=== PATIENT | male | born 1985 | race Two or more races ===

== ENCOUNTER 2017-02-26 09:27 | Emergency (ER) | payer OTHER ==
[~2017-02-26] VITALS: Ht 175.3 cm; Wt 81.3 kg
[2017-02-26] MEDS ORDERED: IBUP200C10 PO (09:42)
[2017-02-26] MEDS ORDERED: NS 1,000 ML IV ONE ×3 (10:15→11:15)
[2017-02-26] MEDS ORDERED: ONDANSETRON 4MG/2ML VIAL (J2405) IV ONE (10:15)
[2017-02-26 10:37] LABS: BASO # 0.1 K/mm3 (0.0-0.2); BASO % 1.1 % (0.0-1.0); EOS # 0.1 K/mm3 (0.0-0.50); LARGE UNSTAINED CELL # 0.2 K/mm3 (0.0-0.4); LYMPH # 1.1 K/mm3 (1.5-6.5); LYMPH % 19.9 % (24.0-44.0); MEAN CORPUSCULAR HEMOGLOBIN 23.5 pg (27.0-33.0); MEAN CORPUSCULAR HGB CONC 32.9 g/dl (32.0-36.5); MEAN CORPUSCULAR VOLUME 71.3 fl (80.0-96.0); MONO # 0.3 K/mm3 (0.0-0.8); MONO % 5.6 % (0.0-5.0); NEUTROPHILS # 3.9 K/mm3 (1.8-7.7); NEUTROPHILS % 68.4 % (36.0-66.0); PLATELET COUNT, AUTOMATED 102 k/mm3 (150-450); RED CELL DISTRIBUTION WIDTH 12.7 % (11.5-14.5); WHITE BLOOD COUNT 5.6 K/mm3 (4.0-10.0)
[2017-02-26 10:54] LABS: ALBUMIN 3.6 GM/DL (3.2-5.2); ALBUMIN/GLOBULIN RATIO 0.97 (1.00-1.93); ALKALINE PHOSPHATASE 113 U/L (45-117); ALT/SGPT 140 U/L (12-78); AMYLASE 45 U/L (25-115); ANION GAP 8 MEQ/L (8-16); AST/SGOT 130 U/L (15-37); BILIRUBIN,DIRECT 0.2 MG/DL (0.0-0.2); BILIRUBIN,TOTAL 0.7 MG/DL (0.2-1.0); BLOOD UREA NITROGEN 18 MG/DL (7-18); CALCIUM LEVEL 7.9 MG/DL (8.5-10.1); CARBON DIOXIDE LEVEL 25 MEQ/L (21-32); CHLORIDE LEVEL 106 MEQ/L (98-107); CREATININE FOR GFR 1.55 MG/DL (0.70-1.30); GLOMERULAR FILTRATION RATE 56.7 (>60); GLUCOSE, FASTING 103 MG/DL (70-105); SODIUM LEVEL 139 MEQ/L (136-145); TOTAL PROTEIN 7.3 GM/DL (6.4-8.2)
--- NOTE | 2017-02-26 11:51 | REP ---
Abdominal right upper quadrant ultrasound: There is a negative Marsh's sign to transducer pressure. There is no cholelithiasis, gallbladder wall thickening or pericholecystic fluid. There is no intrahepatic or extrahepatic biliary duct dilatation, the common duct measures 3.4 mm in diameter. The hepatic parenchyma is homogeneous. There are no hepatic masses. The small visualized portion of the pancreatic head is unremarkable. The pancreatic body and tail are obscured by bowel gas. There is no right renal calculus, mass, hydronephrosis or cyst. The right kidney is normal size measuring 11.1 cm craniocaudad length. No free fluid is identified. Impression: Essentially negative abdominal right upper quadrant ultrasound. The body and tail of pancreas are obscured by bowel gas. Signed by Tigre Cheng MD 02/26/2017 11:43 A
[2017-02-26] MEDS ORDERED: MORPHINE 2 MG/ML 1ML SYRINGE IV ONE (12:30)
[2017-02-26] MEDS ORDERED: ZOFR4TAB3 PO (12:58)
[2017-02-26 13:04] VITALS: BP 116/66
== END 2017-02-26 13:10 | disposition home or self-care (01) ==
LOC: M ED 09:27
DX: R10.9 Unspecified abdominal pain (principal); R11.2 Nausea with vomiting, unspecified; R74.8 Abnormal levels of other serum enzymes
CPT/HCPCS: 36415; 76705; 80048; 80076; 81001; 82150; 82550; 83690; 85025; 86705; 86709; 86803; 87340; 96361; 96374; 96375; 99283; G0480; J2405